=== PATIENT | female | born 1965 | race African-American/Black ===

== ENCOUNTER 2019-04-12 17:28 | Emergency (ER) | payer OTHER ==
--- NOTE | 2019-04-12 17:34 | PDOC ---
Rapid Medical Evaluation Time Seen by Provider: 04/12/19 17:32 Medical Evaluation: 04/12/19 17:34 I have performed a brief in-person evaluation of this patient. The patient presents with a chief complaint of: Lower back pain and subj fever. Seen in UC 04/04 for urinary frequency and currently on macrobid for UTI per pt. No hematuria, n/v. Pertinent physical exam findings: HR 104, well cassandra, no overt CVAT, defer rest of exam to ER provider I have ordered the following:labs/ua The patient will proceed to the ED for further evaluation. Discharge Disposition - Diagnosis Back pain Qualifiers: Back pain location: low back pain Chronicity: acute Back pain laterality: unspecified Sciatica presence: without sciatica Qualified Code(s): M54.5 - Low back pain - Referrals - Patient Instructions - Post Discharge Activity
[2019-04-12 17:38] VITALS: BMI 48.1
--- NOTE | 2019-04-12 18:19 | PDOC ---
History of Present Illness - General Chief Complaint: Urinary Problem Stated Complaint: FEVER Time Seen by Provider: 04/12/19 17:32 History Source: Patient - History of Present Illness Initial Comments: 04/12/19 18:13 Patient is a 53 year old female with no significant PMH who presents with urinary symptoms x10 days. Pt complains of dysuria, burning, frequency that began 10 days ago. She went to Urgent Care and was prescribed macrobid BID x7 days. She reports compliance with medications but no relief of symptoms. Last night, pt began experiencing intermittent stabbing back pain, abd tenderness, and nausea. One episode of fever and chills this morning. Pt took alleve around 1pm. She denies hx of UTIs or kidney stones. Denies vaginal symptoms. No spotting or discharge. One sexual partner. LMP 2 weeks ago. PCP: Allergies: NKDA PMH: none Surgical hx: cholecystectomy Social hx: social alcohol use, denies cigarette or drug Meds: none 04/12/19 18:20 Past History - Past Medical History Allergies/Adverse Reactions: Allergies Allergy/AdvReac Type Severity Reaction Status Date / Time No Known Allergies Allergy Verified 04/12/19 17:38 Home Medications: Ambulatory Orders Nitrofurantoin Macrocrystal [Nitrofurantoin] 100 mg PO BID 04/12/19 levoFLOXacin [Levaquin -] 750 mg PO DAILY #5 tablet 04/12/19 COPD: No - Surgical History Cholecystectomy: Yes (1985) - Immunization History Immunization Up to Date: Yes - Psycho Social/Smoking Cessation Hx Smoking History: Never smoked Have you smoked in the past 12 months: No Information on smoking cessation initiated: No Hx Alcohol Use: No Drug/Substance Use Hx: No Review of Systems - Review of Systems Able to Perform ROS?: Yes Constitutional: Yes: Chills, Fever, Loss of Appetite HEENTM: No: Symptoms Reported, See HPI, Eye Pain, Blurred Vision, Tearing, Recent change in vision, Double Vision, Cataracts, Ear Pain, Ocular Prothesis, Ear Discharge, Nose Pain, Nose Congestion, Tinnitus, Nose Bleeding, Hearing Loss , Throat Pain, Throat Swelling, Mouth Pain, Dental Problems, Difficulty Swallowing, Mouth Swelling, Other Respiratory: No: Symptoms reported, See HPI, Cough, Orthopnea, Shortness of Breath, SOB with Exertion, SOB at Rest, Stridor, Wheezing, Productive cough, Hemoptysis, Other Cardiac (ROS): No: Symptoms Reported, See HPI, Chest Pain, Edema, Irregular Heart Rate, Lightheadedness, Palpitations, Syncope, Chest Tightness, Other ABD/GI: Yes: Nausea, Abdominal cramping. No: Symptoms Reported, See HPI, Abdominal Distended, Abd. Pain w/ defecation, Blood Streaked Bowels, Constipated , Diarrhea, Difficulty Swallowing, Poor Appetite, Poor Fluid Intake, Rectal Bleeding, Vomiting, Indigestion, Tarry Stools, Other : Yes: Burning, Dysuria, Flank Pain, Urgency. No: Symptoms Reported, See HPI , Discharge, Frequency, Hematuria, Incontinence, Pain, Testicular Mass, Testicular Swelling, Lesions, Testicular Pain, Other Musculoskeletal: Yes: Back Pain Neurological: No: Symptoms reported, See HPI, Headache, Numbness, Paresthesia, Pre-Existing Deficit, Seizure, Tingling, Tremors, Weakness, Unsteady Gait, Ataxia, Dizziness, Other *Physical Exam - Vital Signs Last Vital Signs Temp Pulse Resp BP Pulse Ox 99.6 F 104 H 20 145/75 100 04/12/19 17:30 04/12/19 17:30 04/12/19 17:30 04/12/19 17:30 04/12/19 17:30 - Physical Exam General Appearance: Yes: Nourished, Appropriately Dressed, Obese. No: Apparent Distress HEENT: positive: EOMI, Normal Voice, Symmetrical, Pharynx Normal Neck: positive: Normal Thyroid, Supple. negative: Tender Respiratory/Chest: positive: Lungs Clear, Normal Breath Sounds. negative: Respiratory Distress, Crackles, Wheezing Cardiovascular: positive: Regular Rhythm, S1, S2, Tachycardia. negative: Edema , JVD, Murmur Vascular Pulses: Dorsalis-Pedis (R): 2+, Doralis-Pedis (L): 2+ Gastrointestinal/Abdominal: positive: Normal Bowel Sounds, Tender, Soft Musculoskeletal: positive: CVA Tenderness ED Treatment Course - LABORATORY CBC & Chemistry Diagram: 04/12/19 18:30 04/12/19 18:30 Medical Decision Making - Medical Decision Making 04/12/19 18:21 UA, Urine cx, CBC, CMP 04/12/19 18:38 Called urgent care, urine cx was pcn-resistant, otherwise maria-sensitive Discharge - Discharge Information Problems reviewed: Yes Clinical Impression/Diagnosis: Back pain Qualifiers: Back pain location: low back pain Chronicity: acute Back pain laterality: unspecified Sciatica presence: without sciatica Qualified Code(s): M54.5 - Low back pain UTI (urinary tract infection) Qualifiers: Urinary tract infection type: site unspecified Hematuria presence: without hematuria Qualified Code(s): N39.0 - Urinary tract infection, site not specified Condition: Stable Disposition: HOME - Admission No - Additional Discharge Information Prescriptions: levoFLOXacin [Levaquin -] 750 mg PO DAILY #5 tablet - Follow up/Referral Referrals: ON STAFF,NOT [Primary Care Provider] - - Patient Discharge Instructions Additional Instructions: You were evaluated in the ER for a UTI. We will prescribe you with new antibiotics to treat your infection >> Please take Levaquin 750mg once a day for 5 days. Your labs also showed that you were anemic. This is likely due to your heavy menstrual periods. You should follow up with your it applications developer within one week for further evaluation and an MRI. Please also follow up with your primary care provider within one week. Return to the ER if you experience worsening urinary symptoms, persistent fevers and chills, worsening back or abdominal pain, or blood in your urine. - Post Discharge Activity
[2019-04-12] MEDS ORDERED: ACETAMINOPHEN 325 MG TABLET (FP) PO ONE ×2 (18:26→21:50)
[2019-04-12 18:52] LABS: BASO % 0.3 % (0-2.0); EOS % 0.2 % (0-4.5); HEMATOCRIT 25.2 % (32.4-45.2); HEMOGLOBIN 7.5 GM/dL (10.7-15.3); LYMPH % 8.5 % (8-40); MCH 21.1 pg (25.7-33.7); MCHC 29.6 g/dl (32.0-36.0); MEAN CELL VOLUME 71.1 fl (80-96); MEAN PLT VOLUME 7.2 fl (7.5-11.1); PLATELET COUNT 440 K/MM3 (134-434); RBC 3.54 M/mm3 (3.60-5.2); RDW 19.3 % (11.6-15.6); WHITE BLOOD COUNT 15.5 K/mm3 (4.0-10.0)
[2019-04-12] MEDS ORDERED: SODIUM CHLORIDE 0.9% 1000 ML INFUS.BAG IV ONE (18:52)
--- NOTE | 2019-04-12 18:52 | PDOC ---
Documentation entered by Tirso Hill SCRIBE, acting as scribe for Mary Ann Berg DO. Mary Ann Berg DO: This documentation has been prepared by the Sergio brunson Daniel, SCRIBE, under my direction and personally reviewed by me in its entirety. I confirm that the documentation accurately reflects all work, treatment, procedures, and medical decision making performed by me. Attending Attestation - Resident Resident Name: Paris Rivera - ED Attending Attestation I have performed the following: I have examined & evaluated the patient, The case was reviewed & discussed with the resident, I agree w/resident's findings & plan, Exceptions are as noted - HPI HPI: 04/12/19 18:13 The patient is a 53 year old female with no past medical history here today for evaluation of burning with urination and urinary frequency. The patient reports that she has had burning with urination and urinary frequency for 1 week and went to an urgent care who gave her macrobid which she took with no relief. She also states that she had a fever today and sharp abdominal and back pain last night. She notes taking advil around 1 PM today. Patient denies headache, lightheadedness. Denies fever, chills. Denies chest pain, shortness of breath. Denies vomiting, diarrhea. Allergies: NKA Surgical history: cholecystectomy - Physicial Exam PE: 04/12/19 18:39 Constitutional: +morbidly obese. Awake, alert, oriented. No acute distress. Head: Normocephalic. Atraumatic Eyes: PERRL. EOMI. Conjunctivae are not pale. ENT: Mucous membranes are moist and intact. Posterior pharynx without exudates or erythema. Uvula midline. Neck: Supple. Full ROM. No lymphadenopathy. Cardiovascular: +tachycardia. Regular rhythm. S1, S2 regular. Distal pulses are 2+ and symmetric. Pulmonary/Chest: No evidence of respiratory distress. Clear to auscultation bilaterally No wheezing, rales or rhonchi. Abdominal: +mild suprapubic tenderness. Soft and non-distended. No rebound, guarding or rigidity. No organomegaly. No palpable masses. Good bowel sounds. Back: No CVA tenderness. Musculoskeletal: No edema. No cyanosis. No clubbing. Full range of motion in all extremities. Nocalf tenderness. Radial/pedal pulses are intact and 2+ bilaterally Skin: Skin is warm and dry. No petechiae. No purpura. Neurological: Alert and oriented to person, place, and time. Cranial nerves II -XII are grossly intact. Normal speech. Strength is grossly symmetric. No sensory deficits. Psychiatric: Good eye contact. Normal interaction, affect and behavior. - Medical Decision Making 04/12/19 18:49 I, Dr. Mary Ann Berg, DO, attest that this document has been prepared under my direction and personally reviewed by me in its entirety. I further attest, that it accurately reflects all work, treatment, procedures and medical decision -making performed by me. a/p: 53yo female with urinary freq x 10d -pt seen at urgent care 7days ago and started on macrobid for a uti -pelvic cramping and urinary freq persistent despite meds -pt states chills since yesterday -denies vaginal complaints -will send labs, ua, ucx -resident called urgent care and urine culture positive and maria sensitive except to PCN -will repeat labs -will give tylenol -will monitor and reassess 04/12/19 19:08 wbc 15 hgb 7 - pt states very heavy menses denies lightheaded or dizziness FDLMP was over thanksgiving 04/12/19 19:32 normal cr 04/12/19 20:35 ua shows ketones however, symptoms and mildly elevated wbc will send for pelvic tvus to eval pelvic pain and hgb 7.5 will change abx 04/12/19 22:00 no acute pelvic pathology on ultrasound will change abx stable for dc to home and follow up with PMD
[2019-04-12 19:30] LABS: ALBUMIN 3.4 g/dl (3.4-5.0); BILIRUBIN,TOTAL 0.4 mg/dL (0.2-1); BLOOD UREA NITROGEN 7.8 mg/dL (7-18); CALCIUM 8.4 mg/dL (8.5-10.1); CREATININE 0.6 mg/dL (0.55-1.3); POTASSIUM 4.1 mmol/L (3.5-5.1); TOT PROT 7.8 g/dl (6.4-8.2)
[2019-04-12] MEDS ORDERED: ACETAMINOPHEN 325 MG TABLET (FP) ONE ×2 (19:38→22:05)
[2019-04-12 19:54] LABS: ANISOCYTOSIS 1+; MACROCYTOSIS 0; PLATELET ESTIMATE NORMAL
[2019-04-12 20:16] LABS: URINE APPEARANCE CLEAR; URINE BILIRUBIN NEGATIVE (NEGATIVE); URINE COLOR DK YELLOW; URINE GLUCOSE (UA) NEGATIVE (NEGATIVE); URINE KETONE 2+ (NEGATIVE); URINE LEUK ESTERASE NEGATIVE (NEGATIVE); URINE NITRITE NEGATIVE (NEGATIVE); URINE PROTEIN NEGATIVE (NEGATIVE); URINE UROBILINOGEN 0.2 mg/dL (0.2-1.0)
[2019-04-12 20:41] VITALS: BP 118/63; PULSE 92; TEMP 98.2
== END 2019-04-12 22:18 | disposition home or self-care (01) ==
LOC: JER 17:28
PROC: 3E0337Z Introduction of Electrolytic and Water Balance Substance into Peripheral Vein, Percutaneous Approach (ICD-10-PCS; principal; 2019-04-12)
DX: M54.5 Low back pain (principal); N39.0 Urinary tract infection, site not specified
CPT/HCPCS: 36415; 76830-TC; 80053; 81003; 84703; 85025; 87086; 99283-25; J7030